=== PATIENT | female | born 1995 | race Caucasian/White ===

== ENCOUNTER 2022-02-13 01:21 | Emergency (ER) | payer BC ==
[~2022-02-13] VITALS: Ht 172.7 cm; Wt 68.0 kg
[2022-02-13 01:34] VITALS: BP 164/92
== END 2022-02-13 02:35 | disposition home or self-care (01) ==
LOC: ER 01:24
DX: S06.0X9A Concussion with loss of consciousness of unspecified duration, initial encounter (principal); W20.8XXA Other cause of strike by thrown, projected or falling object, initial encounter; Y93.89 Activity, other specified; Y92.59 Other trade areas as the place of occurrence of the external cause; Y99.8 Other external cause status